=== PATIENT | female | born 1980 | race Caucasian/White ===

== ENCOUNTER 2017-11-03 18:24 | Emergency (ER) | payer MEDICAID ==
--- NOTE | 2017-11-03 20:10 | ED Physician Documentation ---
PD HPI CHEST PAIN - Stated complaint Stated Complaint: CP - Chief complaint Chief Complaint: Cardiac - History obtained from History obtained from: Patient - History of Present Illness Timing - onset: Enter time (16:00) Timing - onset during: Light activity Timing - duration: Hours Timing - details: Abrupt onset Pain level max: 9 Pain level now: 7 Quality: Pain Location: Left chest Radiation: Left upper extremity Improved by: Nothing Worsened by: Inspiration Associated symptoms: Shortness of air (mild). No: Diaphoresis, Nausea, Vomiting, Feeling faint / dizzy, General Weakness, Palpitations, Cough Similar symptoms before: Has not had sx before Recently seen: Not recently seen - Additional information Additional information: sudden onset 4 PM of left chest pain radiating to LUE, facial paresthesias (resolved). Chest pain has mild pleuritic component, mild dyspnea. Denies h/o similar symptoms Review of Systems Constitutional: reports: Reviewed and negative Cardiac: reports: Chest pain / pressure. denies: Palpitations, Pedal edema, Calf pain Respiratory: denies: Dyspnea, Cough GI: reports: Reviewed and negative Musculoskeletal: denies: Extremity swelling PD PAST MEDICAL HISTORY - Past Medical History Cardiovascular: Hypertension Respiratory: None Endocrine/Autoimmune: None Psych: Anxiety, Panic attacks Musculoskeletal: None - Past Surgical History Past Surgical History: Yes Ortho: Other /LUNCH COOK: section - Present Medications Home Medications: Ambulatory Orders Medication Instructions Recorded Confirmed Alprazolam [Xanax] 2 mg PO DAILY 07/05/15 07/05/15 Clindamycin [Cleocin] 300 mg PO Q6H 10 Days capsule 07/05/15 Meloxicam 1 tab PO DAILY 07/05/15 07/05/15 oxyCODONE/ACET 5/325 [Percocet 5 1 tab PO Q6HR PRN 07/05/15 07/05/15 mg/325 mg] - Allergies Allergies/Adverse Reactions: Allergies Allergy/AdvReac Type Severity Reaction Status Date / Time acetaminophen [From Vicodin] Allergy Intermediate Hives Verified 07/05/15 00:13 hydrocodone bitartrate * Allergy Intermediate Hives Verified 11/03/17 18:29 [From Vicodin] Sulfa (Sulfonamide Allergy Intermediate Hives Verified 11/03/17 18:29 Antibiotics) - Social History Does the pt smoke?: Yes Smoking Status: Current every day smoker Does the pt drink ETOH?: Yes Does the pt have substance abuse?: No - Immunizations Immunizations are current?: Yes PD ED PE NORMAL - Vitals Vital signs reviewed: Yes - General General: Alert and oriented X 3, No acute distress, Well developed/nourished - HEENT HEENT: Moist mucous membranes - Cardiac Cardiac: RRR, No murmur, No gallop, No rub - Respiratory Respiratory: No respiratory distress, Clear bilaterally - Abdomen Abdomen: Soft, Non tender - Derm Derm: Normal color, Warm and dry - Extremities Extremities: No edema Results - Vitals Vitals: Vital Signs - 24 hr 11/03/17 11/03/17 11/03/17 18:27 19:30 21:15 Temperature 36.2 C L Heart Rate 95 84 87 Respiratory 18 20 19 Rate Blood Pressure 144/86 H 130/81 H 139/92 H O2 Saturation 98 97 98 11/03/17 21:51 Temperature Heart Rate 74 Respiratory 17 Rate Blood Pressure 138/98 H O2 Saturation 98 Oxygen O2 Source Room air - EKG (time done) No standard instances Rate: Rate (enter#) (86) Rhythm: NSR [place]: Normal Intervals: Normal [place] QRS: Normal Ischemia: Normal ST segments - Labs Labs: Laboratory Tests 11/03/17 11/03/17 11/03/17 18:45 20:36 20:36 WBC 8.6 RBC 4.95 Hgb 15.3 Hct 43.8 MCV 88.5 MCH 30.9 MCHC 34.9 RDW 13.3 Plt Count 272 MPV 8.8 Neut # (Auto) 5.6 Lymph # (Auto) 2.4 [place] # (Auto) 0.5 Eos # (Auto) 0.1 Baso # (Auto) 0.0 Absolute Nucleated RBC 0.01 Nucleated RBC % 0.1 Sodium 136 Potassium 3.9 Chloride 101 Carbon Dioxide 26 Anion Gap 9.0 BUN 10 Creatinine 0.7 Estimated GFR (MDRD) 94 Glucose 109 H Calcium 9.0 Troponin I < 0.04 - Rads (name of study) chest xray Radiology: Prelim report reviewed, See rad report PD MEDICAL DECISION MAKING - ED course Complexity details: reviewed results, re-evaluated patient, considered differential, d/w patient - Sepsis Event Vital Signs: Vital Signs - 24 hr 11/03/17 11/03/17 11/03/17 18:27 19:30 21:15 Temperature 36.2 C L Heart Rate 95 84 87 Respiratory 18 20 19 Rate Blood Pressure 144/86 H 130/81 H 139/92 H O2 Saturation 98 97 98 11/03/17 21:51 Temperature Heart Rate 74 Respiratory 17 Rate Blood Pressure 138/98 H O2 Saturation 98 Oxygen O2 Source Room air Departure - Departure Disposition: 01 Home, Self Care Clinical Impression: Chest pain Condition: Good Instructions: ED Chest Pain Atypical Unkn Cause Follow-Up: Jaime Weston MD [Primary Care Provider] - Discharge Date/Time: 11/03/17 21:56
[2017-11-03 20:27] LABS: BASOPHILS % (AUTO) 0.5 %; EOSINOPHILS # (AUTO) 0.1 10^3/uL (0.0-0.7); EOSINOPHILS % (AUTO) 0.7 %; HGB - HEMOGLOBIN 15.3 g/dL (12.0-16.0); LYMPHOCYTES # (AUTO) 2.4 10^3/uL (1.5-3.5); LYMPHOCYTES % (AUTO) 27.4 %; MEAN CORPUSCULAR HEMOGLOBIN 30.9 pg (27.0-31.0); MEAN CORPUSCULAR HGB CONC 34.9 g/dL (32.0-36.0); MEAN CORPUSCULAR VOLUME 88.5 fL (81.0-99.0); MEAN PLATELET VOLUME 8.8 fL (7.9-10.8); MONOCYTES # (AUTO) 0.5 10^3/uL (0.0-1.0); MONOCYTES % (AUTO) 6.1 %; NEUTROPHILS # (AUTO) 5.6 10^3/uL (1.5-6.6); NEUTROPHILS % (AUTO) 65.3 %; PLT - PLATELET COUNT 272 10^3/uL (130-450); RED BLOOD COUNT 4.95 10^6/uL (4.20-5.40); RED CELL DISTRIBUTION WIDTH 13.3 % (12.0-15.0); WHITE BLOOD COUNT 8.6 x10^3/uL (4.8-10.8)
--- NOTE | 2017-11-03 20:55 | XRAY Report ---
Reason: chest pain Procedure Date: 11/03/2017 Accession Number: [id number] / [id number] Procedure: XR - Chest 2 View X-Ray CPT Code: 43685 FULL RESULT: EXAM: CHEST RADIOGRAPHY EXAM DATE: 11/03/2017 08:34 PM. CLINICAL HISTORY: Chest pain. COMPARISON: None. TECHNIQUE: 2 views. FINDINGS: Lungs/Pleura: No focal opacities evident. No pleural effusion. No pneumothorax. Normal volumes. Mediastinum: Heart and mediastinal contours are unremarkable. Other: None. IMPRESSION: Normal 2-view chest radiography. RADIA
[2017-11-03 20:58] LABS: CREATININE 0.7 mg/dL (0.4-1.0)
[2017-11-03] MEDS ORDERED: KETOROLAC 60 MG/2 ML VIAL IVP STA (21:36)
[2017-11-03 21:51] VITALS: BP 138/98
== END 2017-11-03 21:56 | disposition home or self-care (01) ==
LOC: ED 18:24
DX: R07.9 Chest pain, unspecified (principal); I10 Essential (primary) hypertension; F17.200 Nicotine dependence, unspecified, uncomplicated
CPT/HCPCS: 36415; 71046; 80048; 84484; 85025; 93005; 96374; 99282; 99284

== ENCOUNTER 2019-03-28 21:53 | Emergency (ER) | payer MEDICAID ==
[2019-03-28 22:03] VITALS: BP 146/85
== END 2019-03-28 23:55 | disposition left against medical advice (07) ==
LOC: ED 21:53
DX: Z53.21 Procedure and treatment not carried out due to patient leaving prior to being seen by health care provider (principal)

== ENCOUNTER 2019-05-04 17:49 | Outpatient (CLI) | payer MEDICAID | END 2019-05-04 17:50 | disposition home or self-care (01) | LOC: COV 17:49 | PROVIDERS: ATTEND Family Medicine | DX: R05 Cough (principal) ==

== ENCOUNTER 2019-05-07 11:35 | Emergency (ER) | payer MEDICAID ==
--- NOTE | 2019-05-07 12:51 | ED Physician Documentation ---
History of Present Illness - Stated complaint Stated Complaint: CHILLS/CHEST PX - Chief complaint Chief Complaint: Resp - History obtained from History obtained from: Patient - History of Present Illness Pain level max: 4 Pain level now: 2 - Additonal information Additional information: 38-year-old female states that for the past 2 to 3 weeks she has had intermittent chest pain. For the past 2 days it is been constant located in the anterior aspect of the chest, starts on the left side of the chest and radiates to the right. She states her arms feel heavy as well. She states she tried an inhaler without relief. Has had mild cough and congestion. No fevers. She states she was tested for covid 19 2 days ago and negative. Nothing makes it better or worse. No history of heart issues. She is not diabetic. Does not smoke. No recent surgeries or immobilization. Review of Systems Ten Systems: 10 systems reviewed and negative Constitutional: denies: Fever, Chills Nose: reports: Rhinorrhea / runny nose Throat: denies: Sore throat Cardiac: reports: Chest pain / pressure (States that her chest feels tight) Respiratory: reports: Cough (Mild, dry) GI: reports: Nausea, Diarrhea (States had a small amount of diarrhea). 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 - Present Medications Home Medications: Ambulatory Orders Medication Instructions Recorded Confirmed Alprazolam [Xanax] 2 mg PO DAILY 07/05/15 05/07/19 oxyCODONE/ACET 5/325 [Percocet 5 1 tab PO Q6HR PRN 07/05/15 05/07/19 mg/325 mg] Albuterol Sulf [Ventolin Hfa 1 - 2 puffs INH Q4HR PRN #1 inhaler 05/07/19 Inhaler] Topiramate [Topamax] 225 mg DAILY 05/07/19 05/07/19 - Allergies Allergies/Adverse Reactions: Allergies Allergy/AdvReac Type Severity Reaction Status Date / Time hydrocodone bitartrate * Allergy Intermediate Hives Verified 05/07/19 11:39 [From Vicodin] Sulfa (Sulfonamide Allergy Intermediate Hives Verified 05/07/19 11:39 Antibiotics) - Social History Does the pt smoke?: Yes Smoking Status: Current every day smoker Does the pt drink ETOH?: Yes Does the pt have substance abuse?: No - Immunizations Immunizations are current?: Yes PD ED PE NORMAL - Vitals Vital signs reviewed: Yes - General General: Alert and oriented X 3, No acute distress, Well developed/nourished - HEENT HEENT: Moist mucous membranes - Neck Neck: Supple, no meningeal sign - Cardiac Cardiac: RRR, Strong equal pulses - Respiratory Respiratory: No respiratory distress, Other (Mild diminished breath sounds bilaterally) - Abdomen Abdomen: Soft, Non tender, Non distended - Derm Derm: Warm and dry - Extremities Extremities: No edema, No calf tenderness / cord - Neuro Neuro: Alert and oriented X 3 - Psych Psych: Normal mood, Normal affect Results - Vitals Vitals: Vital Signs - 24 hr 05/07/19 05/07/19 05/07/19 11:39 11:55 13:15 Temperature 37.1 C Heart Rate 76 81 63 Respiratory 18 16 12 Rate Blood Pressure 141/78 H 128/86 H O2 Saturation 99 100 Oxygen O2 Source Room air - EKG (time done) 1152 Rate: Rate (enter#) (75) Rhythm: NSR [place]: Normal Intervals: Normal [place] QRS: Normal Ischemia: Normal ST segments - Labs Labs: Laboratory Tests 05/07/19 05/07/19 05/07/19 13:05 13:05 13:05 WBC 7.0 RBC 5.25 Hgb 16.2 H Hct 47.0 MCV 89.5 MCH 30.9 MCHC 34.5 RDW 12.4 Plt Count 276 MPV 9.9 Neut # (Auto) 4.9 Lymph # (Auto) 1.7 [place] # (Auto) 0.4 Eos # (Auto) 0.0 Baso # (Auto) 0.0 Absolute Nucleated RBC 0.00 Nucleated RBC % 0.0 Sodium 137 Potassium 3.7 Chloride 106 Carbon Dioxide 22 Anion Gap 9.0 BUN 10 Creatinine 0.7 Estimated GFR (MDRD) 93 Glucose 93 Calcium 9.0 Total Bilirubin 0.8 AST 18 ALT 24 Alkaline Phosphatase 48 Troponin I High Sens 3.1 Total Protein 7.5 Albumin 4.2 Globulin 3.3 Albumin/Globulin Ratio 1.3 Lipase 46 - Rads (name of study) cxr Radiology: Prelim report reviewed, EMP read contemporaneously, See rad report (normal) PD MEDICAL DECISION MAKING - ED course Complexity details: reviewed results, re-evaluated patient, considered differential (No ST elevation [place], no aortic dissection, no PE, no tension pneumothorax, no aortic aneurysm), d/w patient ED course: 38-year-old female presents to the emergency department with cough and chest pain. No evidence of pulmonary embolus. No evidence of acute coronary syndrome. Feels better after nebulizer treatment. Her inhaler is old and we will refill this for her and provide a spacer as well. Lung sounds are improved after breathing treatment. Patient is currently asymptomatic. Patient counseled regarding signs and symptoms for which I believe and urgent re- evaluation would be necessary. Patient with good understanding of and agreement to plan and is comfortable going home at this time This document was made in part using voice recognition software. While efforts are made to proofread this document, sound alike and grammatical errors may occur. Departure - Departure Disposition: 01 Home, Self Care Clinical Impression: Viral URI Chest pain Qualifiers: Chest pain type: unspecified Qualified Code(s): R07.9 - Chest pain, unspecified Condition: Good Instructions: ED Chest Pain Atypical Unkn Cause, ED URI Viral Follow-Up: Jaime Weston MD [Primary Care Provider] - Within 1 week Prescriptions: Albuterol Sulf [Ventolin Hfa Inhaler] 1 - 2 puffs INH Q4HR PRN #1 inhaler PRN Reason: Shortness Of Air/Wheezing Comments: Use the spacer with the inhaler. Return if you worsen. Your testing is normal today.
[2019-05-07] MEDS ORDERED: ALBUTEROL NEB 2.5 MG/3 ML INH STA (12:53)
[2019-05-07 13:15] LABS: BASOPHILS % (AUTO) 0.6 %; EOSINOPHILS % (AUTO) 0.3 %; HGB - HEMOGLOBIN 16.2 g/dL (12.0-16.0); LYMPHOCYTES # (AUTO) 1.7 10^3/uL (1.5-3.5); LYMPHOCYTES % (AUTO) 24.7 %; MEAN CORPUSCULAR HEMOGLOBIN 30.9 pg (27.0-31.0); MEAN CORPUSCULAR HGB CONC 34.5 g/dL (32.0-36.0); MEAN CORPUSCULAR VOLUME 89.5 fL (81.0-99.0); MEAN PLATELET VOLUME 9.9 fL (7.9-10.8); MONOCYTES # (AUTO) 0.4 10^3/uL (0.0-1.0); MONOCYTES % (AUTO) 5.1 %; NEUTROPHILS # (AUTO) 4.9 10^3/uL (1.5-6.6); PLT - PLATELET COUNT 276 10^3/uL (130-450); RED BLOOD COUNT 5.25 10^6/uL (4.20-5.40); RED CELL DISTRIBUTION WIDTH 12.4 % (12.0-15.0)
[2019-05-07 13:28] LABS: ALBUMIN 4.2 g/dL (3.2-5.5); ALBUMIN/GLOBULIN RATIO 1.3 (1.0-2.2); BILIRUBIN,TOTAL 0.8 mg/dL (0.2-1.0); CREATININE 0.7 mg/dL (0.4-1.0); TOTAL PROTEIN 7.5 g/dL (6.7-8.2)
--- NOTE | 2019-05-07 13:45 | XRAY Report ---
Reason: Chest Pain Procedure Date: 05/07/2019 Accession Number: [id number] / [id number] Procedure: XR - Chest 1 View X-Ray CPT Code: 30288 Final Report FULL RESULT: EXAM: CHEST RADIOGRAPHY EXAM DATE: 05/07/2019 01:08 PM. CLINICAL HISTORY: Chest Pain. COMPARISON: CHEST 2 VIEW 11/03/2017 8:31 PM. TECHNIQUE: 1 view. FINDINGS: Lungs/Pleura: No focal opacities evident. No pleural effusion. No pneumothorax. Mediastinum: Within exam limitations, the cardiomediastinal contour is normal. Other: None. IMPRESSION: Normal single view chest. RADIA
[2019-05-07 14:07] VITALS: BP 112/86
== END 2019-05-07 14:05 | disposition home or self-care (01) ==
LOC: ED 11:35
DX: J06.9 Acute upper respiratory infection, unspecified (principal); R07.9 Chest pain, unspecified; I10 Essential (primary) hypertension; F17.200 Nicotine dependence, unspecified, uncomplicated; F41.0 Panic disorder [episodic paroxysmal anxiety]; Z79.891 Long term (current) use of opiate analgesic
CPT/HCPCS: 36415; 71045; 80053; 83690; 84484; 85025; 93005; 94640; 99284

== ENCOUNTER 2019-05-20 15:00 | Outpatient (CLI) | payer MEDICAID ==
--- NOTE | 2019-05-21 08:23 | XRAY Report ---
Reason: CHEST PAIN Procedure Date: 05/20/2019 Accession Number: [id number] / [id number] Procedure: XR - Chest 2 View X-Ray CPT Code: 71064 Final Report FULL RESULT: EXAM: CHEST RADIOGRAPHY EXAM DATE: 05/20/2019 03:15 PM. CLINICAL HISTORY: CHEST PAIN. Shortness of breath with intermittent cough. COMPARISON: CHEST 1 VIEW 05/07/2019 12:48 PM CHEST 2 VIEW 11/03/2017 8:31 PM. TECHNIQUE: 2 views. FINDINGS: Lungs/Pleura: No focal opacities evident. No pleural effusion. No pneumothorax. Normal volumes. Mediastinum: Heart and mediastinal contours are unremarkable. Other: No acute osseous abnormality. There are mild degenerative disk changes of the midthoracic spine. IMPRESSION: No acute cardiopulmonary abnormality. No focal pulmonary consolidation. RADIA
== END 2019-05-20 15:01 | disposition home or self-care (01) ==
LOC: DI 15:00
PROVIDERS: ATTEND Internal Medicine
DX: R07.9 Chest pain, unspecified (principal); E66.9 Obesity, unspecified; E78.49 Other hyperlipidemia; R73.9 Hyperglycemia, unspecified
CPT/HCPCS: 36415; 71046; 80053; 85025

== ENCOUNTER 2019-05-20 15:15 | Outpatient (CLI) | payer MEDICAID ==
[2019-05-20 15:35] LABS: BASOPHILS % (AUTO) 0.2 %; EOSINOPHILS % (AUTO) 0.1 %; HGB - HEMOGLOBIN 14.9 g/dL (12.0-16.0); LYMPHOCYTES # (AUTO) 0.9 10^3/uL (1.5-3.5); LYMPHOCYTES % (AUTO) 7.4 %; MEAN CORPUSCULAR HEMOGLOBIN 31.1 pg (27.0-31.0); MEAN CORPUSCULAR HGB CONC 33.8 g/dL (32.0-36.0); MEAN CORPUSCULAR VOLUME 92.1 fL (81.0-99.0); MEAN PLATELET VOLUME 9.5 fL (7.9-10.8); MONOCYTES # (AUTO) 0.2 10^3/uL (0.0-1.0); MONOCYTES % (AUTO) 1.6 %; NEUTROPHILS # (AUTO) 10.8 10^3/uL (1.5-6.6); NEUTROPHILS % (AUTO) 90.1 %; PLT - PLATELET COUNT 287 10^3/uL (130-450); RED BLOOD COUNT 4.79 10^6/uL (4.20-5.40)
[2019-05-20 15:48] LABS: ALBUMIN 4.1 g/dL (3.2-5.5); ALBUMIN/GLOBULIN RATIO 1.3 (1.0-2.2); BILIRUBIN,TOTAL 0.4 mg/dL (0.2-1.0); CALCIUM 8.9 mg/dL (8.5-10.3); CREATININE 0.7 mg/dL (0.4-1.0); TOTAL PROTEIN 7.2 g/dL (6.7-8.2)
== END 2019-05-20 15:16 | disposition home or self-care (01) ==
LOC: LAB 15:15
PROVIDERS: ATTEND Internal Medicine
DX: R07.9 Chest pain, unspecified (principal); E66.9 Obesity, unspecified; E78.49 Other hyperlipidemia; R73.9 Hyperglycemia, unspecified
CPT/HCPCS: 36415; 80053; 85025

== ENCOUNTER 2020-05-11 15:08 | Emergency (ER) | payer MEDICAID ==
[2020-05-11 16:02] LABS: BASOPHILS % (AUTO) 0.6 %; EOSINOPHILS # (AUTO) 0.1 10^3/uL (0.0-0.7); HCT - HEMATOCRIT 46.4 % (37.0-47.0); LYMPHOCYTES # (AUTO) 2.6 10^3/uL (1.5-3.5); LYMPHOCYTES % (AUTO) 39.4 %; MEAN CORPUSCULAR HEMOGLOBIN 30.8 pg (27.0-31.0); MEAN CORPUSCULAR HGB CONC 34.5 g/dL (32.0-36.0); MEAN CORPUSCULAR VOLUME 89.4 fL (81.0-99.0); MEAN PLATELET VOLUME 10.1 fL (7.9-10.8); MONOCYTES # (AUTO) 0.4 10^3/uL (0.0-1.0); MONOCYTES % (AUTO) 6.1 %; NEUTROPHILS # (AUTO) 3.5 10^3/uL (1.5-6.6); NEUTROPHILS % (AUTO) 52.6 %; PLT - PLATELET COUNT 327 10^3/uL (130-450); RED BLOOD COUNT 5.19 10^6/uL (4.20-5.40); RED CELL DISTRIBUTION WIDTH 12.3 % (12.0-15.0); WHITE BLOOD COUNT 6.7 x10^3/uL (4.8-10.8)
--- NOTE | 2020-05-11 16:02 | ED Physician Documentation ---
History of Present Illness - Stated complaint Stated Complaint: CHEST PX - Chief complaint Chief Complaint: Cardiac - History obtained from History obtained from: Patient - History of Present Illness Timing: How many days ago (10) Pain level max: 2 Pain level now: 2 - Additonal information Additional information: Patient is a 39-year-old female who presents to the emergency department complaining of palpitations and left-sided chest pain intermittently for the past 10 days. Nothing seems to make it better or worse. Has not had symptoms previously. No changes to her medications. No fevers. No chills. No dyspnea. No recent travel. No history of acute coronary syndrome. No leg swelling or pain. 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 - Present Medications Home Medications: Ambulatory Orders Medication Instructions Recorded Confirmed Alprazolam [Xanax] 2 mg PO DAILY 07/05/15 05/07/19 oxyCODONE/ACET 5/325 [Percocet 5 1 tab PO Q6HR PRN 07/05/15 05/11/20 mg/325 mg] Topiramate [Topamax] 150 mg PO DAILY 05/07/19 05/11/20 Rimegepant Sulfate [Nurtec Odt] 75 mg PO PRN PRN 05/11/20 05/11/20 - Allergies Allergies/Adverse Reactions: Allergies Allergy/AdvReac Type Severity Reaction Status Date / Time hydrocodone bitartrate * Allergy Intermediate Hives Verified 05/11/20 15:27 [From Vicodin] Sulfa (Sulfonamide Allergy Intermediate Hives Verified 05/11/20 15:27 Antibiotics) - Social History Does the pt smoke?: Yes Smoking Status: Current every day smoker Does the pt drink ETOH?: Yes Does the pt have substance abuse?: No - Immunizations Immunizations are current?: Yes - POLST Patient has POLST: No PD ED PE NORMAL - Vitals Vital signs reviewed: Yes - General General: Alert and oriented X 3, No acute distress, Well developed/nourished - HEENT HEENT: PERRL, Moist mucous membranes - Neck Neck: Supple, no meningeal sign - Cardiac Cardiac: RRR, Strong equal pulses - Respiratory Respiratory: No respiratory distress, Clear bilaterally - Abdomen Abdomen: Soft, Non tender, Non distended - Derm Derm: Warm and dry, No rash - Extremities Extremities: No edema, No calf tenderness / cord - Neuro Neuro: Alert and oriented X 3 - Psych Psych: Normal mood, Normal affect Results - Vitals Vitals: Vital Signs - 24 hr 05/11/20 05/11/20 05/11/20 15:15 15:33 16:47 Temperature 37.6 C 36.6 C Heart Rate 69 79 63 Respiratory 18 20 19 Rate Blood Pressure 131/73 H 121/87 H 123/59 L O2 Saturation 100 100 100 Oxygen O2 Source Room air - EKG (time done) 1517 Rate: Rate (enter#) (63) Rhythm: NSR [place]: Normal Intervals: Normal [place] QRS: Normal Ischemia: Normal ST segments - Labs Labs: Laboratory Tests 05/11/20 05/11/20 05/11/20 15:28 15:28 15:28 WBC 6.7 RBC 5.19 Hgb 16.0 Hct 46.4 MCV 89.4 MCH 30.8 MCHC 34.5 RDW 12.3 Plt Count 327 MPV 10.1 Neut # (Auto) 3.5 Lymph # (Auto) 2.6 [place] # (Auto) 0.4 Eos # (Auto) 0.1 Baso # (Auto) 0.0 Absolute Nucleated RBC 0.00 Nucleated RBC % 0.0 Sodium 138 Potassium 3.6 Chloride 105 Carbon Dioxide 20 L Anion Gap 13.0 BUN 14 Creatinine 0.7 Estimated GFR (MDRD) 92 Glucose 94 Calcium 9.0 Phosphorus 3.3 Magnesium 2.1 Total Bilirubin 0.6 AST 18 ALT 19 Alkaline Phosphatase 46 Troponin I High Sens 3.7 Total Protein 7.4 Albumin 4.4 Globulin 3.0 Albumin/Globulin Ratio 1.5 Lipase 49 - Rads (name of study) Chest x-ray Radiology: Prelim report reviewed, EMP read contemporaneously, See rad report (No acute abnormality) PD MEDICAL DECISION MAKING - ED course Complexity details: reviewed results, re-evaluated patient, considered differential (No ST elevation [place], no aortic dissection, no PE, no tension pneumothorax, no aortic aneurysm), d/w patient ED course: 39-year-old female presents to the emergency department palpitations. Has multiple PVCs on the monitor. These are about 1 every 15-20 heartbeats. These gradually improved over the ED stay. We will have her follow-up with her doctor for further care. Patient counseled regarding signs and symptoms for which I believe and urgent re-evaluation would be necessary. Patient with good understanding of and agreement to plan and is comfortable going home at this time This document was made in part using voice recognition software. While efforts are made to proofread this document, sound alike and grammatical errors may occur. Chest x-ray read as mild atypical pneumonia, patient has no symptoms consistent with pneumonia. No evidence of active infection. Symptoms coincide with her PVCs. Departure - Departure Disposition: 01 Home, Self Care Clinical Impression: Palpitations Chest pain Qualifiers: Chest pain type: unspecified Qualified Code(s): R07.9 - Chest pain, unspecified Condition: Good Instructions: ED Chest Pain NonCardiac, ED Palpitations Follow-Up: Jaime Weston MD [Primary Care Provider] - Within 1 week Comments: Follow up with your doctor for further care. You appear to be having PVC's today. These are premature ventricular contractions. They are not harmful. but if they continue to bother you, your doctor may want to start you on a beta anastasiya or do a holter monitor. Discharge Date/Time: 05/11/20 16:55
--- NOTE | 2020-05-11 16:08 | XRAY Report ---
PROCEDURE: Chest 1 View X-Ray INDICATIONS: Chest Pain TECHNIQUE: One view of the chest was acquired. COMPARISON: 05/20/2019 chest x-ray FINDINGS: Surgical changes and devices: None. Lungs and pleura: No pleural effusions or pneumothorax. Mild bilateral perihilar opacity, right grea ter than left. Mediastinum: Mediastinal contours appear normal. Heart size is normal. Bones and chest wall: No suspicious bony lesions. Overlying soft tissues appear unremarkable. IMPRESSION: Mild atypical pneumonia. Reviewed by: Shanel Gamez MD on 05/11/2020 4:06 PM PDT Approved by: Shanel Gamez MD on 05/11/2020 4:06 PM PDT Station ID: [id number]
[2020-05-11 16:14] LABS: ALBUMIN 4.4 g/dL (3.2-5.5); ALBUMIN/GLOBULIN RATIO 1.5 (1.0-2.2); BILIRUBIN,TOTAL 0.6 mg/dL (0.2-1.0); CREATININE 0.7 mg/dL (0.4-1.0); MAGNESIUM 2.1 mg/dL (1.7-2.8); PHOSPHORUS 3.3 mg/dL (2.5-4.6); POTASSIUM 3.6 mmol/L (3.5-5.0); TOTAL PROTEIN 7.4 g/dL (6.7-8.2)
[2020-05-11 16:48] VITALS: BP 123/59
--- OUTSIDE RECORDS SUMMARY | 2020-05-16 02:10 | EXTERNAL MEDICAL SUMMARY RPT | Continuity of Care Document ---
:1980 Demographics Phone Unavailable Preferred Language Unknown Marital Status Unknown Judaism Affiliation Unknown Race Unknown Ethnic Group Unknown Author Organization [facility] Address [address] [place] [address] Phone Social History date description facility [phone]
== END 2020-05-11 16:55 | disposition home or self-care (01) ==
LOC: SUPCPDRO 15:08 → ED 15:08
DX: I49.3 Ventricular premature depolarization (principal); R07.9 Chest pain, unspecified; I10 Essential (primary) hypertension; F17.200 Nicotine dependence, unspecified, uncomplicated
CPT/HCPCS: 36415; 80053; 83690; 83735; 84100; 84484; 85025; 93005; 99284

== ENCOUNTER 2021-03-29 16:00 | Outpatient (CLI) | payer MEDICAID ==
--- NOTE | 2021-03-29 16:59 | Ultrasound Report ---
PROCEDURE: Head or Neck Soft Tissue INDICATIONS: HYPOTHYROIDISM TECHNIQUE: Real time scanning was performed of the neck region of interest, with image documentation . COMPARISON: None. FINDINGS: Right: Thyroid lobe measures 5.5 x 1.8 x 2.1 cm, and is homogenous in echotexture. Left: Thyroid lobe measures 4.8 x 2 x 2.1 cm, and is homogenous in echotexture. Isthmus: 0.9 cm. Nodule number: 1 Location: Right mid, posterior Size: 1 x 0.6 x 0.7 cm Composition: Solid Echogenicity: Hypoechoic Shape: Wider than tall. Margins: Smooth Echogenic foci: Peripheral calcification Total points: 6 ACR TI-RADS category: Moderately suspicious; follow up if 1 cm or larger (at 1, 2, 3, and 5 years). Nodule number: 2 Location: Left mid Size: 2.4 x 1.5 x 1.6 cm Composition: Solid Echogenicity: Isoechoic Shape: Wider than tall. Margins: Smooth Echogenic foci: None. Total points: 3 ACR TI-RADS category: Mildly suspicious; follow-up if 1.5 cm or larger (at 1, 3, and 5 years). IMPRESSION: 1. 2 thyroid nodules as detailed above. Sum of all points to determine TI-RADS level. ACR TI-RADS definitions and recommendations: TI-RADS 3 (mildly suspicious): 3 points. --FNA if 2.5 cm or larger, follow-up if 1.5 cm or larger (at 1, 3, and 5 years). TI-RADS 4 (moderately suspicious): 4-6 points. --FNA if 1.5 cm or larger, follow up if 1 cm or larger (at 1, 2, 3, and 5 years). Reviewed by: South Garcia MD on 03/29/2021 4:57 PM PST Approved by: South Garcia MD on 03/29/2021 4:57 PM PST Station ID: [id number]
== END 2021-03-29 16:01 | disposition home or self-care (01) ==
LOC: DI 16:00
PROVIDERS: ATTEND Family Medicine
DX: E04.2 Nontoxic multinodular goiter (principal); E03.9 Hypothyroidism, unspecified

== ENCOUNTER 2021-04-28 19:44 | Emergency (ER) | payer MEDICAID ==
[2021-04-28] MEDS ORDERED: IPRATROPIUM/ALBUTEROL 3 ML NEB INH STA (20:14)
[2021-04-28] MEDS ORDERED: KETOROLAC 30 MG/ML VIAL IVP STA (20:14)
[2021-04-28] MEDS ORDERED: DEXAMETHASONE 10 MG/ML VIAL IVP STA (20:14)
--- NOTE | 2021-04-28 20:16 | ED Physician Documentation ---
PD HPI DYSPNEA - Stated complaint Stated Complaint: DIZZY,TIGHT CHEST,LIGHTHEADED - Chief complaint Chief Complaint: Cardiac - History obtained from History obtained from: Patient - History of Present Illness Timing - onset: Today Timing - onset during: Rest Timing - duration: Hours Timing - details: Gradual onset, Still present Inciting event(s): URI Improved by: Rest Worsened by: Exertion Associated symptoms: Chest pain / discomfort (L upper chest). No: Fever, Cough, Hemoptysis, Wheezing Similar symptoms before: Has not had sx before Recently seen: Not recently seen - Additional information Additional information: 40-year-old female with a history of panic attack has developed some dyspnea today that she states is different than what she has with panic attack. 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 She has developed some pain in the left upper chest and she is having a difficult time getting a full deep breath. She does not have wheezing or cough. She did have Covid in February of this year and had mild symptoms. She has been vaccinated and boosted. Review of Systems Constitutional: denies: Fever Eyes: denies: Decreased vision Ears: denies: Ear pain Nose: denies: Congestion Throat: denies: Sore throat Cardiac: reports: Chest pain / pressure Respiratory: reports: Dyspnea. denies: Cough, Wheezing GI: denies: Vomiting : denies: Dysuria, Frequency PD PAST MEDICAL HISTORY - Past Medical History Cardiovascular: Hypertension Respiratory: None Neuro: Migraines, Other Endocrine/Autoimmune: None Psych: Anxiety, Panic attacks Musculoskeletal: None - Past Surgical History Past Surgical History: Yes Ortho: Other /PRIMARY OPERATOR: section - Present Medications Home Medications: Ambulatory Orders Medication Instructions Recorded Confirmed Alprazolam [Xanax] 2 mg PO BID 07/05/15 04/28/21 oxyCODONE/ACET 5/325 [Percocet 5 1 tab PO Q6HR PRN 07/05/15 04/28/21 mg/325 mg] Topiramate [Topamax] 150 mg PO DAILY 05/07/19 04/28/21 Topiramate [Topamax] 100 mg PO DAILY PRN 04/28/21 04/28/21 buPROPion HCL [Bupropion HCl] 100 mg PO BID 04/28/21 04/28/21 - Allergies Allergies/Adverse Reactions: Allergies Allergy/AdvReac Type Severity Reaction Status Date / Time hydrocodone bitartrate * Allergy Intermediate Hives Verified 04/28/21 19:56 [From Vicodin] Sulfa (Sulfonamide Allergy Intermediate Hives Verified 04/28/21 19:56 Antibiotics) - Social History Does the pt smoke?: Yes Smoking Status: Current every day smoker Does the pt drink ETOH?: Yes Does the pt have substance abuse?: No - Immunizations Immunizations are current?: Yes - POLST Patient has POLST: No PD ED PE NORMAL - Vitals Vital signs reviewed: Yes (hypertensive ) - General General: Alert and oriented X 3, No acute distress, Well developed/nourished - HEENT HEENT: Atraumatic, PERRL, EOMI - Neck Neck: Supple, no meningeal sign, No bony TTP - Cardiac Cardiac: RRR, No murmur - Respiratory Respiratory: No respiratory distress, Clear bilaterally, Other (diminished breath sounds. Pain to palpation below the left clavicle reproduces the pain the patient presents with. ) - Abdomen Abdomen: Soft, Non tender - Back Back: No CVA TTP, No spinal TTP - Derm Derm: Normal color, Warm and dry, No rash - Extremities Extremities: No deformity, No edema - Neuro Neuro: Alert and oriented X 3, glass technologist 2-12 intact, No motor deficit, No sensory deficit, Normal speech Eye Opening: Spontaneous Motor: Obeys Commands Verbal: Oriented GCS Score: 15 - Psych Psych: Normal mood, Normal affect Results - Vitals Vitals: Vital Signs - 24 hr 04/28/21 04/28/21 04/28/21 19:47 20:00 20:17 Temperature 36.6 C Heart Rate 82 81 74 Respiratory 18 16 16 Rate Blood Pressure 160/87 H 135/86 H 134/86 H Blood Pressure 135/86 H [Right] O2 Saturation 100 98 98 04/28/21 04/28/21 04/28/21 20:23 20:51 21:26 Temperature 36.3 C L Heart Rate 73 72 73 Respiratory 14 13 14 Rate Blood Pressure 112/51 L 117/69 Blood Pressure [Right] O2 Saturation 98 98 04/28/21 21:31 Temperature Heart Rate 74 Respiratory 19 Rate Blood Pressure 117/54 L Blood Pressure [Right] O2 Saturation 100 Oxygen O2 Source Room air - EKG (time done) 1948 Rate: Rate (enter#) (89) Rhythm: NSR QRS: Low voltage Ischemia: Normal ST segments Compare to prior EKG: Changed from prior EKG (SPT 05/11/20 rate has increased) Computer interpretation: Disagree with computer (I do not see lateral ST depression ) - Labs Labs: Laboratory Tests 04/28/21 04/28/21 04/28/21 20:00 20:00 20:00 WBC 8.6 RBC 4.90 Hgb 14.6 Hct 42.2 MCV 86.1 MCH 29.8 MCHC 34.6 RDW 11.9 L Plt Count 290 MPV 9.7 Neut # (Auto) 5.4 Lymph # (Auto) 2.3 [facility] # (Auto) 0.7 Eos # (Auto) 0.1 Baso # (Auto) 0.0 Absolute Nucleated RBC 0.00 Nucleated RBC % 0.0 D-Dimer Sodium 138 Potassium 4.2 Chloride 109 Carbon Dioxide 21 Anion Gap 8.0 BUN 14 Creatinine 0.8 Estimated GFR (MDRD) 79 L Glucose 128 H Calcium 8.5 Total Bilirubin 0.8 AST 32 ALT 34 Alkaline Phosphatase 46 Troponin I High Sens 3.1 Total Protein 6.9 Albumin 3.7 Globulin 3.2 Albumin/Globulin Ratio 1.2 Lipase 52 H 04/28/21 20:00 WBC RBC Hgb Hct MCV MCH MCHC RDW Plt Count MPV Neut # (Auto) Lymph # (Auto) [facility] # (Auto) Eos # (Auto) Baso # (Auto) Absolute Nucleated RBC Nucleated RBC % D-Dimer 200.3 Sodium Potassium Chloride Carbon Dioxide Anion Gap BUN Creatinine Estimated GFR (MDRD) Glucose Calcium Total Bilirubin AST ALT Alkaline Phosphatase Troponin I High Sens Total Protein Albumin Globulin Albumin/Globulin Ratio Lipase PD MEDICAL DECISION MAKING - ED course Complexity details: reviewed old records, reviewed results, re-evaluated patient, considered differential, d/w patient ED course: 40-year-old female with acute left anterior chest wall pain is administered dexamethasone and Toradol with improvement. We did initially provide a DuoNeb treatment for the patient this did not seem to make any difference to her breathing. She was not actually dyspneic on evaluation. She complains of difficulty getting a full deep breath secondary to the pain in her left anterior chest. Departure - Departure Disposition: 01 Home, Self Care Clinical Impression: Costochondritis, acute Condition: Stable Instructions: ED Chest Pain Costochondritis Follow-Up: Jaime Weston MD [Primary Care Provider] - Comments: Arlyn, today it looks like you do have costochondritis as a reason for your chest pain. This is an inflammation of the chest wall itself and usually related to some overuse of the chest in some way. Likely the carrying of your grandchild the other day. This is an indication to use pain medication if needed there does not appear to be any underlying defect. The symptoms are usually lasting about one to two weeks. Discharge Date/Time: 04/28/21 21:32
[2021-04-28 20:22] LABS: BASOPHILS % (AUTO) 0.5 %; EOSINOPHILS # (AUTO) 0.1 10^3/uL (0.0-0.7); EOSINOPHILS % (AUTO) 1.5 %; HCT - HEMATOCRIT 42.2 % (37.0-47.0); HGB - HEMOGLOBIN 14.6 g/dL (12.0-16.0); LYMPHOCYTES # (AUTO) 2.3 10^3/uL (1.5-3.5); LYMPHOCYTES % (AUTO) 27.2 %; MEAN CORPUSCULAR HEMOGLOBIN 29.8 pg (27.0-31.0); MEAN CORPUSCULAR HGB CONC 34.6 g/dL (32.0-36.0); MEAN CORPUSCULAR VOLUME 86.1 fL (81.0-99.0); MEAN PLATELET VOLUME 9.7 fL (7.9-10.8); MONOCYTES # (AUTO) 0.7 10^3/uL (0.0-1.0); NEUTROPHILS # (AUTO) 5.4 10^3/uL (1.5-6.6); NEUTROPHILS % (AUTO) 62.5 %; PLT - PLATELET COUNT 290 10^3/uL (130-450); RED CELL DISTRIBUTION WIDTH 11.9 % (12.0-15.0); WHITE BLOOD COUNT 8.6 x10^3/uL (4.8-10.8)
--- NOTE | 2021-04-28 21:00 | XRAY Report ---
PROCEDURE: Chest 1 View X-Ray INDICATIONS: chest pain/soa TECHNIQUE: One view of the chest was acquired. COMPARISON: 05/11/2020. FINDINGS: Surgical changes and devices: None. Lungs and pleura: No pleural effusions or pneumothorax. Mediastinum: Mediastinal contours appear normal. Heart size is normal. Bones and chest wall: No suspicious bony lesions. Overlying soft tissues appear unremarkable. IMPRESSION: 1. No acute cardiopulmonary disease. Reviewed by: Elio Franz MD on 04/28/2021 8:59 PM PDT Approved by: Elio Franz MD on 04/28/2021 8:59 PM PDT Station ID: [id number]
[2021-04-28 21:12] LABS: ALBUMIN 3.7 g/dL (3.2-5.5); ALBUMIN/GLOBULIN RATIO 1.2 (1.0-2.2); BILIRUBIN,TOTAL 0.8 mg/dL (0.2-1.0); CALCIUM 8.5 mg/dL (8.5-10.3); CREATININE 0.8 mg/dL (0.4-1.0); POTASSIUM 4.2 mmol/L (3.5-5.0); TOTAL PROTEIN 6.9 g/dL (6.7-8.2)
[2021-04-28 21:31] VITALS: BP 117/54
== END 2021-04-28 21:32 | disposition home or self-care (01) ==
LOC: ED 19:44
DX: M94.0 Chondrocostal junction syndrome [Tietze] (principal); I10 Essential (primary) hypertension
CPT/HCPCS: 36415; 80053; 83690; 84484; 85025; 85379; 93005; 94640; 96374; 96375; 99283

== ENCOUNTER 2022-02-19 08:39 | Emergency (ER) | payer MEDICAID ==
--- OUTSIDE RECORDS SUMMARY | 2022-02-19 09:10 | EXTERNAL MEDICAL SUMMARY RPT | Continuity of Care Document ---
:1980 Author Organization [facility] Address [address] [place] [address] Phone Allergies No information. Encounters No information. Functional Status No information. Immunizations No information. Medications No information. 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 Results/Labs test date author facility value unit interpret ation Result panel 1 (unknown) (no (unknown) (unknown) (no value) (units (unk nown) date) unknown) (unknown) (no (unknown) (unknown) * [facility] if 1 cm or (units (unknown) date) larger, follow up unknown) if 0.5 cm or larger (every year for 5 (unknown) (no (unknown) (unknown) * [facility]NA if 1.5 cm (units (unknown) date) or larger, follow unknown) up if 1 cm or larger (at 1, 2, 3, and 5 (unknown) (no (unknown) (unknown) * [facility]NA if 2.5 cm (units (unknown) date) or larger, follow unknown) up if 1.5 cm or larger (at 1, 3, and 5 (unknown) (no (unknown) (unknown) 02/05/22 (units (unkno wn) date) unknown) (unknown) (no (unknown) (unknown) [address] [place] [address] (units (unknown) date) unknown) (unknown) (no (unknown) (unknown) [id number] (units (unkno wn) date) unknown) (unknown) (no (unknown) (unknown) ACR TI-RADS (units (un known) date) category: Mildly unknown) suspicious (unknown) (no (unknown) (unknown) ACR TI-RADS (units (un known) date) definitions and unknown) recommendations: (unknown) (no (unknown) (unknown) Accession (units (unkn own) date) Number: unknown) [id number] (unknown) (no (unknown) (unknown) Age/Sex: 41 / F (units (unknown) date) Date of Service: unknown) (unknown) (no (unknown) (unknown) [place] (units ( unknown) date) [id number] unknown) (unknown) (no (unknown) (unknown) Approved by: (units (u nknown) date) lm Boswell M.D. on 02/05/2022 at 10:50 (unknown) (no (unknown) (unknown) COMPARISON: (units (un known) date) None. unknown) (unknown) (no (unknown) (unknown) Composition: (units (u nknown) date) Solid unknown) (unknown) (no (unknown) (unknown) : 1980 (units (unknown) date) Acct:[id number] unknown) (unknown) (no (unknown) (unknown) Echogenic foci: (units (unknown) date) None unknown) (unknown) (no (unknown) (unknown) Echogenicity: (units ( unknown) date) Isoechoic unknown) (unknown) (no (unknown) (unknown) FINDINGS: (units (unkn own) date) unknown) (unknown) (no (unknown) (unknown) IMPRESSION: (units (un known) date) Single mildly unknown) suspicious 2.7 cm left thyroid nodule. Recommend (unknown) (no (unknown) (unknown) INDICATIONS: (units (u nknown) date) thyrotoxicosis unknown) without thyrotoxic crisis or storm (unknown) (no (unknown) (unknown) [facility] (units (unknown) date) unknown) (unknown) (no (unknown) (unknown) Isthmus: 0.7 cm (units (unknown) date) thick. unknown) (unknown) (no (unknown) (unknown) Left: Thyroid (units ( unknown) date) lobe measures 5.1 unknown) x 2.1 x 2.4 cm, and is homogenous in (unknown) (no (unknown) (unknown) Loc: [place] (units (unkno wn) date) unknown) (unknown) (no (unknown) (unknown) Location: Left (units (unknown) date) mid unknown) (unknown) (no (unknown) (unknown) Margins: Smooth (units (unknown) date) unknown) (unknown) (no (unknown) (unknown) Nodule number: 1 (units (unknown) date) unknown) (unknown) (no (unknown) (unknown) Ordering (units (unkno wn) date) Provider: unknown) Jaime Weston MD (unknown) (no (unknown) (unknown) PROCEDURE: US (units ( unknown) date) THYROID unknown) (unknown) (no (unknown) (unknown) Patient: (units (unkno wn) date) Arlyn Yun M unknown) MR#: [id number] (unknown) (no (unknown) (unknown) Procedure: US (units ( unknown) date) thyroid unknown) (unknown) (no (unknown) (unknown) Real-time (units (unkn own) date) scanning was unknown) performed of the thyroid gland, with image (unknown) (no (unknown) (unknown) Right: Thyroid (units (unknown) date) lobe measures 5.2 unknown) x 2.2 x 1.6 cm, and is homogeneous in (unknown) (no (unknown) (unknown) Shape: Wider (units (u nknown) date) than tall unknown) (unknown) (no (unknown) (unknown) Signed (units (unkno wn) date) unknown) (unknown) (no (unknown) (unknown) Size: 2.7 x 1.6 (units (unknown) date) x 2.0 cm unknown) (unknown) (no (unknown) (unknown) TECHNIQUE: (units (unk nown) date) unknown) (unknown) (no (unknown) (unknown) TI-RADS 1 (units (unkn own) date) (benign): 0 unknown) points. FNA not needed. (unknown) (no (unknown) (unknown) TI-RADS 2 (not (units (unknown) date) suspicious): 2 unknown) points. FNA not needed. (unknown) (no (unknown) (unknown) TI-RADS 3 (units (unkn own) date) (mildly unknown) suspicious): 3 points. (unknown) (no (unknown) (unknown) TI-RADS 4 (units (unkn own) date) (moderately unknown) suspicious): 4-6 points. (unknown) (no (unknown) (unknown) TI-RADS 5 (units (unkn own) date) (highly unknown) suspicious): 7 points or more. (unknown) (no (unknown) (unknown) Total points: 3 (units (unknown) date) unknown) (unknown) (no (unknown) (unknown) Ultrasound (units (unk nown) date) Report unknown) (unknown) (no (unknown) (unknown) documentation. (units (unknown) date) unknown) (unknown) (no (unknown) (unknown) echotexture. (units (u nknown) date) unknown) (unknown) (no (unknown) (unknown) guidelines (units (unk nown) date) unknown) (unknown) (no (unknown) (unknown) provided below. (units (unknown) date) unknown) (unknown) (no (unknown) (unknown) ultrasound-guide (units (unknown) date) d fine-needle unknown) aspiration for further evaluation based on (unknown) (no (unknown) (unknown) years). (units (unkno wn) date) unknown) Social History No information. Vital Signs No information.
--- NOTE | 2022-02-19 09:11 | XRAY Report ---
PROCEDURE: Chest 1 View X-Ray INDICATIONS: Chest pain TECHNIQUE: One view of the chest was acquired. COMPARISON: 04/28/2021 FINDINGS: Surgical changes and devices: None. Lungs and pleura: No pleural effusions or pneumothorax. Lungs are clear. Mediastinum: Mediastinal contours appear normal. Heart size is normal. Bones and chest wall: No suspicious bony lesions. Overlying soft tissues appear unremarkable. IMPRESSION: No acute process. Reviewed by: Shanel Gamez MD on 02/19/2022 9:10 AM [facility] Approved by: Shanel Gamez MD on 02/19/2022 9:10 AM [facility] Station ID: [id number]
[2022-02-19 09:20] LABS: BASOPHILS % (AUTO) 0.5 %; EOSINOPHILS # (AUTO) 0.1 10^3/uL (0.0-0.7); EOSINOPHILS % (AUTO) 1.3 %; HCT - HEMATOCRIT 43.7 % (37.0-47.0); HGB - HEMOGLOBIN 14.8 g/dL (12.0-16.0); LYMPHOCYTES # (AUTO) 1.7 10^3/uL (1.5-3.5); LYMPHOCYTES % (AUTO) 26.3 %; MEAN CORPUSCULAR HEMOGLOBIN 29.2 pg (27.0-31.0); MEAN CORPUSCULAR HGB CONC 33.9 g/dL (32.0-36.0); MEAN CORPUSCULAR VOLUME 86.2 fL (81.0-99.0); MEAN PLATELET VOLUME 9.3 fL (7.9-10.8); MONOCYTES # (AUTO) 0.3 10^3/uL (0.0-1.0); MONOCYTES % (AUTO) 5.2 %; NEUTROPHILS # (AUTO) 4.3 10^3/uL (1.5-6.6); NEUTROPHILS % (AUTO) 66.4 %; PLT - PLATELET COUNT 315 10^3/uL (130-450); RED BLOOD COUNT 5.07 10^6/uL (4.20-5.40); RED CELL DISTRIBUTION WIDTH 12.3 % (12.0-15.0); WHITE BLOOD COUNT 6.4 x10^3/uL (4.8-10.8)
[2022-02-19 09:36] LABS: ALBUMIN/GLOBULIN RATIO 1.2 (1.0-2.2); BILIRUBIN,TOTAL 0.8 mg/dL (0.2-1.0); CALCIUM 8.7 mg/dL (8.5-10.3); CREATININE 0.9 mg/dL (0.4-1.0); POTASSIUM 3.9 mmol/L (3.5-5.0); TOTAL PROTEIN 7.4 g/dL (6.7-8.2)
[2022-02-19 11:55] VITALS: BP 146/94
--- NOTE | 2022-02-19 12:00 | ED Physician Documentation ---
PD HPI CHEST PAIN - Stated complaint Stated Complaint: CHEST PX/SOA - Chief complaint Chief Complaint: Cardiac - History obtained from History obtained from: Patient - Additional information Additional information: The patient comes to the emergency department chief complaint of pain along her left scapula radiating into her chest for the last week. She states that the symptoms actually started with a sense of shortness of breath that has persisted, as well. The patient has no history of DVT or PE. No family history. She is not a smoker. She is not on any control pills and is not . She has had no recent immobilization. The patient states that she has not had a fever, cough, or chills. She has not felt ill in any other way. She states she mainly came in to make sure that it is not her heart. The patient has no known cardiac issues. She is obese but otherwise fairly healthy. Review of Systems Constitutional: reports: Reviewed and negative Eyes: reports: Reviewed and negative Ears: reports: Reviewed and negative Nose: reports: Reviewed and negative Throat: reports: Reviewed and negative Cardiac: reports: Chest pain / pressure Respiratory: reports: Dyspnea GI: reports: Reviewed and negative : reports: Reviewed and negative Skin: reports: Reviewed and negative Musculoskeletal: reports: Reviewed and negative Neurologic: reports: Reviewed and negative Psychiatric: reports: Reviewed and negative Endocrine: reports: Reviewed and negative Immunocompromised: reports: Reviewed and negative PD PAST MEDICAL HISTORY - Past Medical History Past Medical History: Yes Cardiovascular: Hypertension Respiratory: None Neuro: Migraines, Other Endocrine/Autoimmune: None Psych: Anxiety, Panic attacks Musculoskeletal: None - Past Surgical History Past Surgical History: Yes Ortho: Other /FARM EQUIPMENT TECHNICIAN: section - Present Medications Home Medications: Ambulatory Orders Medication Instructions Recorded Confirmed Alprazolam [Xanax] 2 mg PO BID 07/05/15 04/28/21 oxyCODONE/ACET 5/325 [Percocet 5 1 tab PO Q6HR PRN 07/05/15 04/28/21 mg/325 mg] Topiramate [Topamax] 150 mg PO DAILY 05/07/19 04/28/21 Topiramate [Topamax] 100 mg PO DAILY PRN 04/28/21 04/28/21 buPROPion HCL [Bupropion HCl] 100 mg PO BID 04/28/21 04/28/21 - Allergies Allergies/Adverse Reactions: Allergies Allergy/AdvReac Type Severity Reaction Status Date / Time hydrocodone bitartrate * Allergy Intermediate Hives Verified 02/19/22 08:57 [From Vicodin] Sulfa (Sulfonamide Allergy Intermediate Hives Verified 02/19/22 08:57 Antibiotics) - Social History Does the pt smoke?: Yes Smoking Status: Current every day smoker Does the pt drink ETOH?: Yes Does the pt have substance abuse?: No - Immunizations Immunizations are current?: Yes - POLST Patient has POLST: No PD ED PE NORMAL - Vitals Vital signs reviewed: Yes - General General: Alert and oriented X 3, No acute distress, Well developed/nourished - HEENT HEENT: Atraumatic, PERRL, EOMI, Moist mucous membranes - Neck Neck: Supple, no meningeal sign - Cardiac Cardiac: RRR, No murmur, Strong equal pulses - Respiratory Respiratory: No respiratory distress, Clear bilaterally - Abdomen Abdomen: Soft, Non tender, Non distended - Back Back: Other (Muscular tenderness along left scapula.) - Derm Derm: Normal color, Warm and dry, No rash - Extremities Extremities: No deformity, No edema, No calf tenderness / cord - Neuro Neuro: Alert and oriented X 3, Other (Grossly) - Psych Psych: Normal mood, Normal affect Results - Vitals Vitals: Vital Signs - 24 hr 02/19/22 02/19/22 02/19/22 08:54 10:53 11:54 Temperature 36.9 C Heart Rate 78 70 63 Respiratory 20 19 17 Rate Blood Pressure 173/78 H 138/98 H 146/94 H O2 Saturation 98 99 100 Oxygen O2 Source Room air - EKG (time done) 0848 Rate: Rate (enter#) (71) Rhythm: NSR [place]: Normal Intervals: Normal NM QRS: Normal Ischemia: Normal ST segments Compare to prior EKG: Old EKG unavailable Computer interpretation: Agree with computer - Labs Labs: Laboratory Tests 02/19/22 02/19/22 02/19/22 09:15 09:15 09:15 WBC 6.4 RBC 5.07 Hgb 14.8 Hct 43.7 MCV 86.2 MCH 29.2 MCHC 33.9 RDW 12.3 Plt Count 315 MPV 9.3 Neut # (Auto) 4.3 Lymph # (Auto) 1.7 [place] # (Auto) 0.3 Eos # (Auto) 0.1 Baso # (Auto) 0.0 Absolute Nucleated RBC 0.00 Nucleated RBC % 0.0 D-Dimer Sodium 133 L Potassium 3.9 Chloride 102 Carbon Dioxide 23 Anion Gap 8.0 BUN 12 Creatinine 0.9 Estimated GFR (MDRD) 68 L Glucose 220 H Calcium 8.7 Total Bilirubin 0.8 AST 24 ALT 25 Alkaline Phosphatase 64 Troponin I High Sens < 2.3 L Total Protein 7.4 Albumin 4.0 Globulin 3.4 Albumin/Globulin Ratio 1.2 Lipase 53 H 02/19/22 11:51 WBC RBC Hgb Hct MCV MCH MCHC RDW Plt Count MPV Neut # (Auto) Lymph # (Auto) [place] # (Auto) Eos # (Auto) Baso # (Auto) Absolute Nucleated RBC Nucleated RBC % D-Dimer < 200.0 L Sodium Potassium Chloride Carbon Dioxide Anion Gap BUN Creatinine Estimated GFR (MDRD) Glucose Calcium Total Bilirubin AST ALT Alkaline Phosphatase Troponin I High Sens Total Protein Albumin Globulin Albumin/Globulin Ratio Lipase PD Medical Decision Making - ED course Complexity details: reviewed results, re-evaluated patient, considered differential, d/w patient ED course: The patient was worked up with labs, EKG, and chest x-ray, all of which were unremarkable. After speaking with the patient, I did add a D-dimer, as the report of ongoing left chest pain with shortness of breath for a week was most concerning potentially for a PE, even though the patient was fairly low risk. The D-dimer was also normal. I felt the patient was stable for discharge home. We have discussed the need for follow-up and the usual indications for return. Departure - Departure Disposition: 01 Home, Self Care Clinical Impression: Chest pain Qualifiers: Chest pain type: unspecified Qualified Code(s): R07.9 - Chest pain, unspecified Condition: Stable Instructions: ED Chest Pain Atypical Unkn Cause Comments: All of your studies look good. Your D-dimer to look at the possibility of blood clot is normal. As such, it is unlikely that you have a blood clot anywhere, much less one that has broken loose and gone to your lung circulation. Most likely, the cause of your chest pain is musculoskeletal in origin, as we have discussed. However, you should follow-up with your primary doctor to discuss following up with a stress test, should your pain continue or worsen. At this point in time, there is no evidence of an emergent condition causing her symptoms. Discharge Date/Time: 02/19/22 13:28
== END 2022-02-19 13:28 | disposition home or self-care (01) ==
LOC: ED 08:39
DX: R07.9 Chest pain, unspecified (principal); F17.200 Nicotine dependence, unspecified, uncomplicated
CPT/HCPCS: 36415; 80053; 83690; 84484; 85025; 85379; 93005; 99283; 99284

== ENCOUNTER 2022-12-08 08:00 | Outpatient (CLI) | payer MEDICAID, OTHER ==
[2022-12-09 00:14] LABS: BACTERIAL VAGINOSIS DNA NEGATIVE (NEGATIVE); CANDIDA GLABRATA DNA NEGATIVE (NEGATIVE); CANDIDA GROUP DNA NEGATIVE (NEGATIVE); CANDIDA KRUSEI DNA NEGATIVE (NEGATIVE); TRICHOMONAS VAGINALIS DNA NEGATIVE (NEGATIVE)
== END 2022-12-08 23:59 | disposition home or self-care (01) ==
LOC: LAB.WC 08:00
PROVIDERS: ATTEND Nurse Practitioner
DX: N89.8 Other specified noninflammatory disorders of vagina (principal)
CPT/HCPCS: 81514; 81599; 87109

== ENCOUNTER 2022-12-24 08:00 | Outpatient (CLI) | payer OTHER | END 2022-12-24 23:59 | disposition home or self-care (01) | LOC: LAB.N 08:00 | PROVIDERS: ATTEND Physician Assistant Medical | DX: N30.90 Cystitis, unspecified without hematuria (principal) | CPT/HCPCS: 87086 ==

== ENCOUNTER 2022-12-25 08:21 | Outpatient (CLI) | payer OTHER ==
--- NOTE | 2023-01-06 13:07 | Mammography Report ---
BILATERAL DIGITAL SCREENING MAMMOGRAM 3D/2D: 12/25/2022 CLINICAL: Routine screening. Additional films were requested but not obtained. There are scattered areas of fibroglandular density in both breasts (category b / 25%-50% glandular t issue). There is a biopsy clip in the left breast. No significant masses, calcifications, or other findings are seen in either breast. IMPRESSION: NEGATIVE There is no mammographic evidence of malignancy. A 1 year screening mammogram is recommended. Based on the Tyrer Cuzick model (a risk assessment model) the patients lifetime risk is 6.6% and her 10 year risk is 1.1%. According to the ACR, ACS, and NCCN guidelines, an annual breast MRI exam berenice g with mammogram is recommended if the patients lifetime risk is 20% or greater. This exam was interpreted at Station ID: [id number]. NOTE: For mammograms, a report in lay terms will be sent to the patient. Approximately 15% of breast malignancies will not be visualized mammographically. In the management of a palpable breast mass, a negative mammogram must not discourage biopsy of a clinically suspicious lesion. Electronically Signed By: [place] [email or web address]/[email or web address]:01/05/2023 10:49:21 letter sent: No_Letter ACR BI-RADS Category 1: Negative 3341F PARENCHYMAL PATTERN: (A) - The breast(s) demonstrate(s) scattered fibroglandular densities. BI-RADS CATEGORY: (1) - 1 Mammogram [id number] 1 year screening LATERALITY: (B)
== END 2022-12-25 08:22 | disposition home or self-care (01) ==
LOC: DI.N 08:21
PROVIDERS: ATTEND Nurse Practitioner
DX: Z12.31 Encounter for screening mammogram for malignant neoplasm of breast (principal); R92.323 Mammographic fibroglandular density, bilateral breasts

== ENCOUNTER 2023-01-05 09:07 | Outpatient (CLI) | payer OTHER ==
--- NOTE | 2023-01-05 12:03 | Ultrasound Report ---
PROCEDURE: Pelvic w/Transvaginal INDICATIONS: DEEP DYSPAREUNIA TECHNIQUE: Real-time scanning was performed of the pelvic organs, with image documentation. Additional endovagi nal scanning was necessary due to incomplete visualization of the adnexal and endometrial structures by transabdominal scanning. COMPARISON: None. FINDINGS: Uterus: Uterus is anteverted and normal in size at 7.9 x 4.0 x 5.3 cm. The myometrium is homogeneou s. The endometrium measures 3.9 mm in combined thickness. Ovaries: The right ovary measures 2.3 x 1.2 x 1.9 cm, with a calculated ovarian volume of 2.7 cc. T he left ovary measures 2.8 x 1.6 x 1.7 cm, with a calculated ovarian volume of 4.0 cc. The ovaries h ave a normal sonographic appearance. Less than 12 follicles can be seen in each ovary. No adnexal m asses are seen. No cystic lesions measuring greater than 3 cm. Other: No pathologic free abdominal or pelvic fluid. IMPRESSION: 1. No acute ultrasound abnormality. 2. No adnexal masses or fibroids. 3. No endometrial thickening. Reviewed by: Giancarlo Corrigan on 01/05/2023 11:02 AM [facility] Approved by: Giancarlo Corrigan on 01/05/2023 11:02 AM [facility] Station ID: [id number]
== END 2023-01-05 09:08 | disposition home or self-care (01) ==
LOC: DI 09:07
PROVIDERS: ATTEND Nurse Practitioner
DX: N94.12 Deep dyspareunia (principal)
CPT/HCPCS: 36415; 82397; 83001; 83002

== ENCOUNTER 2023-01-05 09:45 | Outpatient (CLI) | payer OTHER | END 2023-01-05 09:46 | disposition home or self-care (01) | LOC: LAB 09:45 | PROVIDERS: ATTEND Nurse Practitioner | DX: N94.12 Deep dyspareunia (principal) | CPT/HCPCS: 36415; 82397; 83001; 83002 ==

== ENCOUNTER 2023-03-11 15:56 | Outpatient (CLI) | payer OTHER ==
--- NOTE | 2023-03-11 21:34 | XRAY Report ---
PROCEDURE: Sinus 3+V INDICATIONS: SINUS INFECTION TECHNIQUE: 3 views of the sinuses were acquired. COMPARISON: None FINDINGS: Sinuses: The visualized sinuses well aerated without air-fluid levels. The visualized mastoids also appear clear. Bones: No suspicious bony lesions. Nasal septum is midline. IMPRESSION: Unremarkable paranasal sinus radiographs Reviewed by: Alexandru Mcmahon MD on 03/11/2023 8:33 PM [facility] Approved by: Alexandru Mcmahon MD on 03/11/2023 8:33 PM [place] Station ID: [id number]
--- NOTE | 2023-03-11 21:35 | XRAY Report ---
PROCEDURE: Chest 2V INDICATIONS: SINUS INFECTION TECHNIQUE: 2 views of the chest were obtained. COMPARISON: None. FINDINGS: Surgical changes and devices: None. Lungs and pleura: No pleural effusions or pneumothorax. Lungs are clear. Mediastinum: Mediastinal contours appear normal. Heart size is normal. Bones and chest wall: No suspicious bony lesions. Overlying soft tissues appear unremarkable. IMPRESSION: Normal two-view chest x-ray Reviewed by: Alexandru Mcmahon MD on 03/11/2023 8:33 PM [facility] Approved by: Alexandru Mcmahon MD on 03/11/2023 8:33 PM [facility] Station ID: [id number]
== END 2023-03-11 15:57 | disposition home or self-care (01) ==
LOC: DI 15:56
PROVIDERS: ATTEND Family Medicine
DX: J01.90 Acute sinusitis, unspecified (principal); I10 Essential (primary) hypertension

== ENCOUNTER 2023-09-09 08:00 | Outpatient (CLI) | payer OTHER | END 2023-09-09 23:59 | disposition home or self-care (01) | LOC: LAB.N 08:00 | PROVIDERS: ATTEND Physician Assistant Medical | DX: Z20.818 Contact with and (suspected) exposure to other bacterial communicable diseases (principal) | CPT/HCPCS: 87070 ==